=== PATIENT | male | born 1990 | race Hispanic/Latino ===

== ENCOUNTER 2022-01-13 00:47 | Emergency (ER) | payer OTHER ==
[~2022-01-13] VITALS: Ht 172.7 cm; Wt 68.0 kg
[2022-01-13 00:57] VITALS: BP 134/72
[2022-01-13 01:12] LABS: BASOPHILS % (AUTO) 0.9 % (0.0-5.0); EOSINOPHILS % (AUTO) 2.1 % (0.0-8.0); HEMATOCRIT 50.6 % (42-54); LYMPHOCYTES % (AUTO) 26.4 % (21.0-51.0); MEAN CORPUSCULAR HGB CONC 33.4 g/dL (32.0-36.0); MEAN CORPUSCULAR VOLUME 89.9 fL (79-99); MONOCYTES % (AUTO) 9.7 % (3.0-13.0); PLATELET COUNT (AUTO) 256 K/uL (130-400); RED BLOOD CELL COUNT(AUTO) 5.63 MIL/uL (4.50-6.20); RED CELL DISTRIBUTION WIDTH 12.4 % (11.0-15.5); WHITE BLOOD COUNT (AUTO) 7.8 K/uL (4.8-10.8)
[2022-01-13 01:20] LABS: POTASSIUM 3.9 mmol/L (3.5-5.1)
[2022-01-13] MEDS ORDERED: 0.9%NACL 1000ML 1,000 ML IV ONE ×2 (01:30)
[2022-01-13] MEDS ORDERED: FAMOTIDINE 20MG VIAL IV ONE (01:30)
[2022-01-13] MEDS ORDERED: PANTOPRAZOLE 40 MG/VIAL IVP ONE (01:30)
[2022-01-13] MEDS ORDERED: KETOROLAC 30MG VIAL (30MG/ML) IV ONE (01:30)
[2022-01-13] MEDS ORDERED: METOCLOPRAMIDE 10 MG/2 ML VIAL IVP ONE (01:30)
[2022-01-13] MEDS ORDERED: ONDANSETRON 4MG INJ IVP ONE (01:30)
[2022-01-13 01:37] LABS: ALBUMIN 3.7 g/dL (3.5-5.0); BILIRUBIN,TOTAL 0.4 mg/dL (0.2-1.0); TOTAL PROTEIN, SERUM 8.3 g/dL (6.0-8.3)
[2022-01-13] MEDS ORDERED: IOHEXOL 350 MG/ML 100ML INFUS..BTL IV ONE (01:49)
[2022-01-13] MEDS ORDERED: DICY20TA2 PO (01:53)
[2022-01-13] MEDS ORDERED: PANT40TA PO (01:53)
[2022-01-13] MEDS ORDERED: METO-296 PO (01:53)
[2022-01-13] MEDS ORDERED: ONDA4TAB10 PO (01:53)
[2022-01-13] MEDS ORDERED: DiphenhydrAMINE HCL 50 MG/ML VIAL ONE (01:59)
[2022-01-13] MEDS ORDERED: DiphenhydrAMINE HCL 50 MG/ML VIAL IV ONE (02:00)
[2022-01-13 02:46] LABS: APPEARANCE,URINE Clear (CLEAR); BILIRUBIN,URINE Negative (NEGATIVE); COLOR,URINE Yellow (YELLOW); GLUCOSE, URINE (UA) Negative (NEGATIVE); KETONES,URINE Trace mg/dL (NEGATIVE); LEUKOCYTE ESTERASE ,URINE Negative (NEGATIVE); NITRATE,URINE Negative (NEGATIVE); OCCULT BLOOD,URINE Negative (NEGATIVE); PH,URINE 5.5 (5.0-8.0); PROTEIN,URINE Negative (NEGATIVE); UROBILINOGEN,URINE 0.2 mg/dL (0.2-1.0)
[2022-01-13 02:53] LABS: AMPHET/METH SCREEN,URINE POSITIVE (NEGATIVE); BARBITURATE SCREEN, URINE NEGATIVE (NEGATIVE); BENZODIAZEPINES SCREEN,URINE POSITIVE (NEGATIVE); CANNABINOID SCREEN,URINE NEGATIVE (NEGATIVE); COCAINE SCREEN,URINE NEGATIVE (NEGATIVE); OPIATE SCREEN,URINE NEGATIVE (NEGATIVE); PHENCYCLIDINE SCREEN,URINE NEGATIVE (NEGATIVE)
[2022-01-13 02:55] LABS: RBC,URINE None Seen /HPF (0-1)
[2022-01-13 02:56] LABS: BACTERIA,URINE None Seen /HPF (None Seen); SQUAMOUS EPITHELIAL CELL,UR Rare /HPF (0-2); WBC,URINE 0-1 /HPF (0-1)
[2022-01-13] MEDS ORDERED: HYOS-28 PO (03:23)
[2022-01-13] MEDS ORDERED: LIDOCAINE HCL 2% VISCOUS 15 ML UDCUP PO ONE (03:30)
[2022-01-13] MEDS ORDERED: MAG/ALUM/SIMETH 30 ML UDCUP PO ONE (03:30)
[2022-01-13] MEDS ORDERED: HYOSCYAMINE SULFATE 0.125 MG TAB.SUBL SL ONE (03:30)
== END 2022-01-13 03:51 | disposition home or self-care (01) ==
LOC: EDH 00:47
DX: K29.70 Gastritis, unspecified, without bleeding (principal); E86.9 Volume depletion, unspecified; F41.9 Anxiety disorder, unspecified; Z79.1 Long term (current) use of non-steroidal anti-inflammatories (NSAID)
CPT/HCPCS: 36415; 71045; 74177; 80053; 80305; 81001; 83605; 83690; 85025; 96361; 96374; 96375; 99285; C9113; J1200; J2405; J2765; J3490; Q9967

== ENCOUNTER 2022-02-16 04:07 | Emergency (ER) | payer OTHER ==
[~2022-02-16] VITALS: Ht 170.2 cm; Wt 72.6 kg
[~2022-02-16 04:07] MED LIST: DICY20TA2 PO; HYOS-28 PO; METO-296 PO; ONDA4TAB10 PO; PANT40TA PO
[2022-02-16 04:10] VITALS: BP 134/71
[2022-02-16] MEDS ORDERED: IBUP-2070 PO (04:54)
[2022-02-16] MEDS ORDERED: ACET-2079 PO (04:54)
[2022-02-16] MEDS ORDERED: HYDROCODONE/ACETAMINOPHEN 5/325 MG TAB PO ONE (05:00)
[2022-02-16] MEDS ORDERED: IBUPROFEN 600 MG TABLET PO ONE (05:00)
== END 2022-02-16 04:59 | disposition home or self-care (01) ==
LOC: EDH 04:07
DX: S63.91XA Sprain of unspecified part of right wrist and hand, initial encounter (principal); J45.909 Unspecified asthma, uncomplicated; Z79.1 Long term (current) use of non-steroidal anti-inflammatories (NSAID); X58.XXXA Exposure to other specified factors, initial encounter; Y93.89 Activity, other specified; Y92.89 Other specified places as the place of occurrence of the external cause; Y99.8 Other external cause status
CPT/HCPCS: 73130

== ENCOUNTER 2022-05-26 02:10 | Emergency (ER) | payer OTHER ==
[~2022-05-26] VITALS: Ht 172.7 cm; Wt 72.6 kg
[~2022-05-26 02:10] MED LIST changes: +ACET-2079 PO; +IBUP-2070 PO
[2022-05-26 02:58] LABS: BASOPHILS % (AUTO) 0.6 % (0.0-5.0); EOSINOPHILS % (AUTO) 0.6 % (0.0-8.0); HEMATOCRIT 47.2 % (42-54); LYMPHOCYTES % (AUTO) 17.3 % (21.0-51.0); MEAN CORPUSCULAR HEMOGLOBIN 27.2 pg (27.0-33.0); MEAN CORPUSCULAR HGB CONC 32.6 g/dL (32.0-36.0); MEAN CORPUSCULAR VOLUME 83.4 fL (79-99); MONOCYTES % (AUTO) 6.5 % (3.0-13.0); NEUTROPHILS % (AUTO) 73.8 % (40.0-77.0); PLATELET COUNT (AUTO) 393 K/uL (130-400); RED BLOOD CELL COUNT(AUTO) 5.66 MIL/uL (4.50-6.20); WHITE BLOOD COUNT (AUTO) 11.5 K/uL (4.8-10.8)
[2022-05-26 03:08] LABS: CARBON DIOXIDE 30 mmol/L (21-32); CHLORIDE 99 mmol/L (101-111); CREATININE 1.3 mg/dL (0.5-1.5); GLOMERULAR FILTR. RATE CALC 69 mL/min (>60); GLUCOSE,RANDOM 103 mg/dL (70-105); POTASSIUM 3.5 mmol/L (3.5-5.1); SODIUM SERUM 137 mmol/L (136-145); UREA NITROGEN, BLOOD 2 mg/dL (7-18)
[2022-05-26 03:12] LABS: ALANINE AMINOTRANSFERASE 55 U/L (12-78); ALBUMIN 3.2 g/dL (3.5-5.0); ALCOHOL, BLOOD 145 mg/dL (0-10); ASPARTATE AMINOTRANSFERASE 41 U/L (10-37); BILIRUBIN,TOTAL 0.3 mg/dL (0.2-1.0); TOTAL PROTEIN, SERUM 8.4 g/dL (6.0-8.3)
[2022-05-26 03:13] LABS: ACETAMINOPHEN < 1 mcg/mL (10-29); SALICYLATE < 2.8 mg/dL (2.8-20.0)
[2022-05-26] MEDS ORDERED: DIAZEPAM 5 MG/ML 2 ML SYG IM ONE (04:00)
[2022-05-26] MEDS ORDERED: LIDOCAINE HCL 2% VISCOUS 15 ML UDCUP ONE (05:06)
[2022-05-26] MEDS ORDERED: MAG/ALUM/SIMETH 30 ML UDCUP ONE (05:06)
[2022-05-26] MEDS ORDERED: KETOROLAC 30MG VIAL (30MG/ML) IM ONE (05:30)
[2022-05-26] MEDS ORDERED: HALOPERIDOL INJ 5 MG/ML VIAL IM SCH (05:30)
[2022-05-26 06:01] LABS: APPEARANCE,URINE CLEAR (CLEAR); BILIRUBIN,URINE NEGATIVE (NEGATIVE); COLOR,URINE YELLOW (YELLOW); GLUCOSE, URINE (UA) NEGATIVE (NEGATIVE); KETONES,URINE NEGATIVE (NEGATIVE); LEUKOCYTE ESTERASE ,URINE NEGATIVE (NEGATIVE); NITRATE,URINE NEGATIVE (NEGATIVE); OCCULT BLOOD,URINE NEGATIVE (NEGATIVE); PH,URINE 8.5 (5.0-8.0); PROTEIN,URINE NEGATIVE (NEGATIVE); UROBILINOGEN,URINE 0.2 mg/dL (0.2-1.0)
[2022-05-26 06:11] LABS: AMPHET/METH SCREEN,URINE NEGATIVE (NEGATIVE); BARBITURATE SCREEN, URINE NEGATIVE (NEGATIVE); BENZODIAZEPINES SCREEN,URINE NEGATIVE (NEGATIVE); CANNABINOID SCREEN,URINE NEGATIVE (NEGATIVE); COCAINE SCREEN,URINE NEGATIVE (NEGATIVE); OPIATE SCREEN,URINE NEGATIVE (NEGATIVE); PHENCYCLIDINE SCREEN,URINE NEGATIVE (NEGATIVE)
[2022-05-26 09:40] VITALS: BP 108/72
== END 2022-05-26 09:42 | disposition home or self-care (01) ==
LOC: EDH 02:10
DX: R07.89 Other chest pain (principal); Z20.822 Contact with and (suspected) exposure to COVID-19; F31.9 Bipolar disorder, unspecified; F41.9 Anxiety disorder, unspecified; Z79.1 Long term (current) use of non-steroidal anti-inflammatories (NSAID)
CPT/HCPCS: 36415; 80053; 80305; 81003; 84484 ×2; 85025; 87635; 93005; 96372 ×3; 99285; C9803; G0481; J1630; J1885; J3360